=== PATIENT | male | born 1955 | race Caucasian/White ===

== ENCOUNTER 2020-05-22 12:34 | Outpatient (CLI) | payer MEDICARE, BC | END 2020-05-22 12:35 | disposition critical access hospital (66) | LOC: EMS 12:34 | PROVIDERS: ATTEND Emergency Medicine | DX: M54.5 Low back pain (principal); R20.0 Anesthesia of skin | CPT/HCPCS: A0425; A0427 ==

== ENCOUNTER 2020-05-22 12:52 | Emergency (ER) | payer MEDICARE, BC ==
[2020-05-22] MEDS ORDERED: DEXAMETHASONE 10 MG/ML VIAL PO STA (13:08)
[2020-05-22] MEDS ORDERED: KETOROLAC 30 MG/ML VIAL IVP STA (13:08)
[2020-05-22] MEDS ORDERED: CHERRY SYRUP 10 ML UDC PO ONE (13:08)
[2020-05-22] MEDS ORDERED: HYDROmorphone 1 MG/ML CARPUJECT IVP STA (13:08)
[2020-05-22 13:21] LABS: BASOPHILS % (AUTO) 0.4 %; EOSINOPHILS # (AUTO) 0.2 10^3/uL (0.0-0.7); EOSINOPHILS % (AUTO) 2.1 %; HCT - HEMATOCRIT 32.1 % (42.0-52.0); HGB - HEMOGLOBIN 10.6 g/dL (14.0-18.0); LYMPHOCYTES # (AUTO) 1.1 10^3/uL (1.5-3.5); MEAN CORPUSCULAR HEMOGLOBIN 30.9 pg (27.0-31.0); MEAN CORPUSCULAR VOLUME 93.6 fL (80.0-94.0); MEAN PLATELET VOLUME 8.8 fL (7.4-11.4); MONOCYTES # (AUTO) 0.8 10^3/uL (0.0-1.0); MONOCYTES % (AUTO) 11.5 %; NEUTROPHILS # (AUTO) 4.9 10^3/uL (1.5-6.6); NEUTROPHILS % (AUTO) 69.7 %; PLT - PLATELET COUNT 373 10^3/uL (130-450); RED BLOOD COUNT 3.43 10^6/uL (4.70-6.10); RED CELL DISTRIBUTION WIDTH 14.4 % (12.0-15.0); WHITE BLOOD COUNT 7.1 x10^3/uL (4.8-10.8)
--- NOTE | 2020-05-22 13:29 | ED Physician Documentation ---
PD HPI BACK PAIN - Stated complaint Stated Complaint: BACK PX - Chief complaint Chief Complaint: Back Pain - History obtained from History obtained from: Patient - History of Present Illness Timing - onset: Chronic Timing - duration: Years Timing - details: Gradual onset Location: Mid, Lower Quality: Spasm Associated symptoms: No: Fever, Weakness, Numbness, Incontinent of urine, Unable to urinate, Hematuria, Incontinent of stool Improves with: Rest Worsened by: Movement - Additional information Additional information: Patient is a 64-year-old who presents to the emergency department with chronic back pain. Has a history of chronic back pain ongoing for the past 30 years or so. Has had multiple back surgeries. He states about 2 months ago he was trying to catch a barbecue that was falling over when he reinjured his back. Has had intermittent pain since that time. He states a few days ago he "moved wrong" and his back "seized up". He states he took Aleve without relief. Has not seen his doctor for this. Worse with movement, better with rest. No numbness or tingling. No loss of bowel or bladder control. No fever. No drug use. Review of Systems Ten Systems: 10 systems reviewed and negative Constitutional: denies: Fever, Chills Respiratory: denies: Cough GI: denies: Vomiting, Diarrhea : denies: Unable to Void, Incontinent Skin: denies: Rash Musculoskeletal: denies: Neck pain Neurologic: denies: Focal weakness, Numbness PD PAST MEDICAL HISTORY - Past Medical History Past Medical History: Yes Musculoskeletal: Chronic back pain - Past Surgical History Past Surgical History: Yes Ortho: Spine surgery - Present Medications Home Medications: Ambulatory Orders Medication Instructions Recorded Confirmed Ibuprofen [Motrin Ib] 400 mg PO QID 05/22/20 05/22/20 Meloxicam [Mobic] 7.5 mg PO BID PRN #20 tablet 05/22/20 Methylprednisolone [Medrol] 4 mg PO DAILY #1 05/22/20 Naproxen Sodium [Aleve] 220 mg PO PRN PRN 05/22/20 05/22/20 Oxycodone HCl/Acetaminophen 1 - 2 each PO Q6H PRN #14 tablet 05/22/20 [Percocet 5-325 mg Tablet] methocarbamoL [Robaxin] 500 mg PO Q6H PRN #20 tablet 05/22/20 - Allergies Allergies/Adverse Reactions: Allergies Allergy/AdvReac Type Severity Reaction Status Date / Time No Known Drug Allergies Allergy Verified 05/22/20 13:05 - Living Situation Living Situation: reports: With family Living Arrangement: reports: At home - Social History Does the pt have substance abuse?: No - Family History Family history: reports: Non contributory PD ED PE NORMAL - Vitals Vital signs reviewed: Yes - General General: Alert and oriented X 3, No acute distress, Well developed/nourished - HEENT HEENT: Moist mucous membranes - Neck Neck: Supple, no meningeal sign - Cardiac Cardiac: RRR, Strong equal pulses - Respiratory Respiratory: No respiratory distress, Clear bilaterally - Abdomen Abdomen: Soft, Non tender, Non distended - Derm Derm: Warm and dry, No rash - Extremities Extremities: No edema - Neuro Neuro: Alert and oriented X 3, No motor deficit, No sensory deficit, Other (Normal bilateral lower extremity patellar and ankle jerk reflexes. Normal great toe extension bilaterally. no saddle anesthesia) - Psych Psych: Normal mood, Normal affect Results - Vitals Vitals: Vital Signs - 24 hr 05/22/20 05/22/20 05/22/20 12:52 14:01 14:03 Temperature 37.1 C Heart Rate 95 83 74 Respiratory 16 16 16 Rate Blood Pressure 165/94 H 165/94 H 140/95 H O2 Saturation 99 98 98 05/22/20 14:30 Temperature Heart Rate 84 Respiratory 16 Rate Blood Pressure 134/90 H O2 Saturation 100 Oxygen O2 Source Room air - Labs Labs: Laboratory Tests 05/22/20 05/22/20 13:08 13:08 WBC 7.1 RBC 3.43 L Hgb 10.6 L Hct 32.1 L MCV 93.6 MCH 30.9 MCHC 33.0 RDW 14.4 Plt Count 373 MPV 8.8 Neut # (Auto) 4.9 Lymph # (Auto) 1.1 L [place] # (Auto) 0.8 Eos # (Auto) 0.2 Baso # (Auto) 0.0 Absolute Nucleated RBC 0.00 Nucleated RBC % 0.0 Sodium 142 Potassium 3.9 Chloride 101 Carbon Dioxide 24 Anion Gap 17.0 H BUN 23 H Creatinine 1.0 Estimated GFR (MDRD) 75 L Glucose 102 H Calcium 10.9 H PD MEDICAL DECISION MAKING - ED course Complexity details: reviewed results, re-evaluated patient, considered differential (No cauda equina, no spinal epidural abscess, no fracture, no aortic dissection or evidence of aneursym rupture), d/w patient ED course: Patient with acute on chronic back pain. No evidence of cauda equina, epidural abscess, aortic dissection. Pain well controlled. Ambulating well. Feels better with a walker. No objective weakness on exam. No saddle anesthesia. We will place on pain medication for home and have him follow-up with his doctor for an MRI. Patient counseled regarding signs and symptoms for which I believe and urgent re-evaluation would be necessary. Patient with good understanding of and agreement to plan and is comfortable going home at this time This document was made in part using voice recognition software. While efforts are made to proofread this document, sound alike and grammatical errors may occur. Departure - Departure Disposition: 01 Home, Self Care Clinical Impression: Back pain Qualifiers: Back pain location: thoracic back pain Chronicity: chronic Back pain laterality: bilateral Qualified Code(s): M54.6 - Pain in thoracic spine Condition: Good Instructions: ED Neck Back Pain General Follow-Up: your,doctor in 1 week [Other] Prescriptions: Methylprednisolone [Medrol] 4 mg PO DAILY #1 Meloxicam [Mobic] 7.5 mg PO BID PRN #20 tablet PRN Reason: Pain Oxycodone HCl/Acetaminophen [Percocet 5-325 mg Tablet] 1 - 2 each PO Q6H PRN #14 tablet PRN Reason: pain methocarbamoL [Robaxin] 500 mg PO Q6H PRN #20 tablet PRN Reason: muscle spasm Comments: Your doctor will likely want to order an MRI of your back, this is not available here today. Follow-up with your doctor for further care. Use the pain medication as needed. Return if you worsen Do not drink alcohol or drive while on narcotic pain medicine. Note that many narcotic pain relievers also contain tylenol/acetaminophen. Please ensure that your total dose of acetaminophen from all sources does not exceed 3 grams (3000mg) per day. You may constipated on this medication, take a stool softener such as "Colace" twice a day while you are on it. Also recommend a [id number] laxative such as senna or MiraLAX any day that you do not have a bowel movement. If you received narcotic pain medication in the emergency department, do not drive or operate machinery for the next 24 hours. Discharge Date/Time: 05/22/20 15:20
[2020-05-22 13:35] LABS: CALCIUM 10.9 mg/dL (8.5-10.3); POTASSIUM 3.9 mmol/L (3.5-5.0)
[2020-05-22 14:31] VITALS: BP 134/90
[2020-05-22] MEDS ORDERED: oxyCODONE 5 MG TABLET PO STA (14:53)
== END 2020-05-22 15:20 | disposition home or self-care (01) ==
LOC: ED 12:52
DX: M54.6 Pain in thoracic spine (principal); G89.29 Other chronic pain
CPT/HCPCS: 36415; 80048; 85025; 96374; 99284; A9270; J1170

== ENCOUNTER 2020-05-23 10:36 | Outpatient (CLI) | payer MEDICARE, BC | END 2020-05-23 10:37 | disposition short-term general hospital (02) | LOC: EMS 10:36 | DX: M54.9 Dorsalgia, unspecified (principal); R20.0 Anesthesia of skin; R53.1 Weakness | CPT/HCPCS: A0425; A0427 ==

== ENCOUNTER 2020-06-06 15:45 | Outpatient (CLI) | payer MEDICARE, BC ==
[2020-06-06 16:50] LABS: ALBUMIN 3.1 g/dL (3.2-5.5); ALBUMIN/GLOBULIN RATIO 0.6 (1.0-2.2); BILIRUBIN,TOTAL 0.5 mg/dL (0.2-1.0); CALCIUM 9.5 mg/dL (8.5-10.3); CREATININE 0.9 mg/dL (0.6-1.2); POTASSIUM 4.3 mmol/L (3.5-5.0); TOTAL PROTEIN 8.3 g/dL (6.7-8.2)
== END 2020-06-06 23:59 | disposition home or self-care (01) ==
LOC: LAB.R 15:45
PROVIDERS: ATTEND Internal Medicine
DX: K76.0 Fatty (change of) liver, not elsewhere classified (principal); D64.9 Anemia, unspecified
CPT/HCPCS: 36415; 80053